=== PATIENT | male | born 1950 | race Hispanic/Latino ===

== ENCOUNTER 2019-11-19 19:14 | Emergency (ER) | payer MEDICARE, OTHER ==
[~2019-11-19] VITALS: Ht 175.3 cm; Wt 95.7 kg
--- NOTE | 2019-11-19 19:23 | Emergency Department Note ---
History of Present Illnes History of Present Illness History of Present Illness This is a 68 year old male presents to the ED for 8 days of Chest pressure with L arm pain Historian: Patient Arrival Mode: Car History limited by: language barrier Air Intelligence Officer Required: Yes Onset (how long ago): day(s) Radiation: Reports non-radiation Severity: mild Onset quality: gradual Chronicity: new Context: Denies recent illness, Denies recent surgery, Denies recent immobilization, Denies recent travel, Denies trauma/injury, Denies new medications, Denies hx of DVT/PE, Denies non-compliance w/ medications, Denies other Relieving factors: none Exacerbating factors: none Associated symptoms: Reports chest pain Past Medical/Family History Physician Review I have reviewed the patient's past medical and family history. Any updates have been documented here. Past Medical History Recent Fever: No Clinical Suspicion of Infectio: No New/Unexplained Change in Ment: No Past Medical History: Hypertension, Diabetes Other Surgery: LEFT WRIST HERNIA Social History Smoking Cessation: Never Smoker Alcohol Use: None Any Illegal Drug Use: No Other Last Tetanus: UTD Review of Systems Review of Systems Constitutional: Reports no symptoms EENTM: Reports no symptoms Cardiovascular: Reports chest pain Respiratory: Reports no symptoms Gastrointestinal: Reports no symptoms Genitourinary: Reports no symptoms Musculoskeletal: Reports no symptoms Integumentary: Reports no symptoms Neurological: Reports no symptoms Psychological: Reports no symptoms Endocrine: Reports no symptoms Hematological/Lymphatic: Reports no symptoms Physical Exam Related Data Allergies: Coded Allergies: No Known Allergies (Unverified , 07/01/14) Triage Vital Signs Vital Signs Date Time Temp Pulse Resp B/P (MAP) Pulse Ox O2 Delivery O2 Flow Rate FiO2 11/19/19 19:54 98.7 72 18 177/93 100 Room Air Vital signs reviewed: Yes Physical Exam CONSTITUTIONAL Constitutional: Present obese HENT HENT: Present normocephalic, Present atraumatic, Present oropharynx clear/moist, Present nose normal HENT L/R: Present left ext ear normal, Present right ext ear normal EYES Eyes: Reports PERRL, Reports conjunctivae normal NECK Neck: Present ROM normal PULMONARY Pulmonary: Present effort normal, Present breath sounds normal CARDIOVASCULAR Cardiovascular: Present regular rhythm, Present heart sounds normal, Present capillary refill normal, Present normal rate GASTROINTESTINAL Abdominal: Present soft, Present nontender, Present bowel sounds normal GENITOURINARY Genitourinary: Present exam deferred SKIN Skin: Present warm, Present dry MUSCULOSKELETAL Musculoskeletal: Present ROM normal NEUROLOGICAL Neurological: Present alert, Present oriented x 3, Present no gross motor or sensory deficits PSYCHOLOGICAL Psychological: Present mood/affect normal, Present judgement normal Results Laboratory Lab results reviewed: Yes Laboratory comments Laboratory Tests Test 11/19/19 20:10 White Blood Count 9.37 x10e3/uL (4.8-10.8) Red Blood Count 4.63 x10e6/uL (4.3-5.7) Hemoglobin 13.3 g/dL (14.0-18.0) Hematocrit 40.6 % (38.2-49.6) Mean Corpuscular Volume 87.7 fL (81-99) Mean Corpuscular Hemoglobin 28.7 pg (28-32) Mean Corpuscular Hemoglobin Concent 32.8 g/dL (31-35) Red Cell Distribution Width 13.4 % (11.7-14.4) Platelet Count 243 x10e3/uL (140-360) Neutrophils (%) (Auto) 70.8 % (38.7-80.0) Lymphocytes (%) (Auto) 18.4 % (18.0-39.1) Monocytes (%) (Auto) 6.3 % (4.4-11.3) Eosinophils (%) (Auto) 3.4 % (0.0-6.0) Basophils (%) (Auto) 0.5 % (0.0-1.0) Neutrophils # (Auto) 6.6 (2.1-6.9) Lymphocytes # (Auto) 1.7 (1.0-3.2) Monocytes # (Auto) 0.6 (0.2-0.8) Eosinophils # (Auto) 0.3 (0.0-0.4) Basophils # (Auto) 0.1 (0.0-0.1) Absolute Immature Granulocyte (auto 0.06 x10e3/uL (0-0.1) Sodium Level 141 mmol/L (136-145) Potassium Level 3.8 mmol/L (3.5-5.1) Chloride Level 106 mmol/L (98-107) Carbon Dioxide Level 21 mmol/L (22-29) Anion Gap 17.8 mmol/L (8-16) Blood Urea Nitrogen 20 mg/dL (7-26) Creatinine 1.43 mg/dL (0.72-1.25) Estimat Glomerular Filtration Rate 49 ML/MIN (60-) BUN/Creatinine Ratio 14 (6-25) Glucose Level 183 mg/dL (74-118) Calcium Level 8.8 mg/dL (8.4-10.2) Total Bilirubin 0.3 mg/dL (0.2-1.2) Aspartate Amino Transf (AST/SGOT) 19 IU/L (5-34) Alanine Aminotransferase (ALT/SGPT) 29 IU/L (0-55) Alkaline Phosphatase 77 IU/L (40-150) Creatine Kinase 145 IU/L (30-200) Creatine Kinase MB 1.20 ng/mL (0-5.0) Troponin I 0.002 ng/mL (0-0.300) Total Protein 6.6 g/dL (6.5-8.1) Albumin 4.2 g/dL (3.5-5.0) Globulin 2.4 g/dL (2.3-3.5) Albumin/Globulin Ratio 1.8 (0.8-2.0) Lipase 77 U/L (8-78) Ethyl Alcohol Level < 10.0 mg/dL (0.0-10.0) Imaging Imaging results reviewed: Yes Impressions [place] [id number] Patient Name: SARA SHARIF MR #: [id number] : 1950 Age/Sex: 68/M Req #: [id number] Adm Physician: Ordered by: LOW BERGER DO Report #: [id number] Location: ER Room/Bed: Procedure: [id number] DX/CHEST 2 VIEWS Exam Date: Exam Time: REPORT STATUS: Signed EXAMINATION: CHEST 2 VIEWS INDICATION: CP COMPARISON: None FINDINGS: PA and lateral views TUBES and LINES: None. . LUNGS/PLEURA: There is elevated left hemidiaphragm. There is mild prominence of the central pulmonary vasculature, consistent with pulmonary venous congestion.. There is no pleural effusion or pneumothorax. HEART AND MEDIASTINUM: Cardiac size is mildly enlarged. BONES AND SOFT TISSUES: No acute osseous lesion. Soft tissues are unremarkable. UPPER ABDOMEN: No free air under the diaphragm. IMPRESSION: Mild prominence of the central pulmonary vasculature, consistent with pulmonary venous congestion. Signed by: Leobardo Means MD on 11/19/2019 9:05 PM Dictated By: LEOBARDO MEANS MD 04 Transcribed By: KATIE on 11/19/192104 COPY TO: LOW BERGER DO~ Procedures 12 Lead ECG Interpretation ECG Interpretation : ECG: ECG 1 Air Intelligence Officer: Interpreted by ED physician Date: Nov 19, 2019 Time: 20:11 Prior ECG tracings: reviewed Rhythm: sinus rhythm Rate: normal BPM: 68 QRS axis: normal ST segments normal: Yes T waves normal: Yes Clinical Impression: normal ECG Assessment & Plan Medical Decision Making MDM Diff Dx : ACS, hypertensive urgency Assessment & Plan Final Impression: (1) Abnormal renal function (2) Hypertension (3) Chest pain, atypical Depart Disposition: HOME, SELF-CARE LOW BERGER DO Nov 19, 2019 19:23
[2019-11-19] MEDS ORDERED: ONDANSETRON HCL INJ 2MG/ML 2ML 2 MG/ML VIAL IV STA (19:30)
[2019-11-19] MEDS ORDERED: MORPHINE SULFATE INJ 4 MG/ML INJ 1ML IV PRN (19:30)
[2019-11-19 20:32] LABS: BASOPHILS # (AUTO) 0.1 (0.0-0.1); BASOPHILS % 0.5 % (0.0-1.0); EOSINOPHILS # (AUTO) 0.3 (0.0-0.4); EOSINOPHILS % 3.4 % (0.0-6.0); HEMATOCRIT 40.6 % (38.2-49.6); HEMOGLOBIN 13.3 g/dL (14.0-18.0); LYMPHOCYTES # (AUTO) 1.7 (1.0-3.2); LYMPHOCYTES % 18.4 % (18.0-39.1); MEAN CORPUSCULAR HEMOGLOBIN 28.7 pg (28-32); MEAN CORPUSCULAR HGB CONC 32.8 g/dL (31-35); MEAN CORPUSCULAR VOLUME 87.7 fL (81-99); MONOCYTES # (AUTO) 0.6 (0.2-0.8); MONOCYTES % 6.3 % (4.4-11.3); NEUTROPHILS # (AUTO) 6.6 (2.1-6.9); NEUTROPHILS % 70.8 % (38.7-80.0); PLATELET COUNT 243 x10e3/uL (140-360); RED BLOOD COUNT 4.63 x10e6/uL (4.3-5.7); RED CELL DISTRIBUTION WIDTH 13.4 % (11.7-14.4)
[2019-11-19] MEDS ORDERED: HYDRALAZINE HCL 20 MG/ML VIAL IV STA (20:42)
[2019-11-19 20:50] LABS: ALBUMIN 4.2 g/dL (3.5-5.0); ALBUMIN/GLOBULIN RATIO 1.8 (0.8-2.0); ANION GAP 17.8 mmol/L (8-16); CALCIUM 8.8 mg/dL (8.4-10.2); CREATININE, SERUM 1.43 mg/dL (0.72-1.25); POTASSIUM 3.8 mmol/L (3.5-5.1)
[2019-11-19 20:52] LABS: LIPASE 77 U/L (8-78)
[2019-11-19 20:56] LABS: CREATINE KINASE MB 1.2 ng/mL (0-5.0)
--- OUTSIDE RECORDS SUMMARY | 2019-11-19 20:58 | XMS REPORT | Continuity of Care Document ---
Author Author [facility] Organization [facility] Address [address] [place] [address] Phone Unavailable Care Team Providers Care Director Of Estate Name Role Phone Unavailable Unavailable Payers Payer Name Policy Type Policy Number Effective Date Expiration Date S ource Problems This patient has no known problems. Allergies, Adverse Reactions, Alerts Allergy Name Allergy Type Status Severity Reaction(s) Onset Date Inacti ve Date Treating Clinician Comments Source No Known Allergies DA Active U 2019-03-25 00:00:00 [facility] No Known Allergies DA Active U 2012-04-21 00:00:00 [facility] Medications This patient has no known medications. Procedures This patient has no known procedures. Results Test Description Test Time Test Comments Results Result Comments Source SURGICAL SPECIMENS 2019-04-22 11:22:00 RUN DATE: 04/22/19 [facility] *LIVE* PAGE 1 RUN TIME: 1121 Specimen Inquiry RUN USER: INTERFACE PATIENT: SARA SHARIF LOC: [facility] U #: [id number] AGE/SX: 68/M ROOM: [facility] RE03/25/19REG DR: Rosaura Saucedo : 54 BED: 1 DIS: 03/27/19 STATUS: DIS IN TLOC: SPEC #: [id number] RECD: 03/26/19 STATUS: PRASHANT RE #: [id number] MARIA E: 03/26/[address] [facility] [address]: Rosaura Saucedo MD ENTERED: 04/22/19 SP TYPE: SURG SPEC OTHR DR: Eliza Arita MD ORDERED: GM LEVEL 4 CODES: [id number] - COLON, NOS COPIES TO: Eliza Arita MD [address] [place] [address] Rosaura Saucedo MD [address] [place] [address] [address] [place] [address] [email or web address] PROCEDURES: GM LEVEL 4 (Incomplete) TISSUES: 1. COLON, NOS - Colon, left, and proximal sigmoid, prox. 2. COLON, NOS - Colon, distal ring, excision FINAL DIAGNOSIS Colon, left, and proximal sigmoid, anastamotic rings, exc: Prior polypectomy sites x 2 with hyperplastic changes, no residual malignancy or dysplasia identified; margins appear viable, 11 lymph nodes without evidence of metastatic carcinoma. Additional nodes to be reported in an addendum. GROSS AND MICROSCOPIC GROSS EXAMINATION: Received in formalin labeled left colon and sigmoid colon is a previously opened 36 cm in length 4.1 cm in circumference excision of colon. There is a suture adjacent to a 0.9 cm polypoid lesion that is 3.7 cm to the stapled distal margin, greater than 10 cm from the proximal margin and 5.5 cm from the radial margin. There is a second 1.2 cm polypoid mass with a suture that is 11 cm from the distal margin greater than 10 cm from the proximal margin and 4.3 cm from the radial margin. No other mass lesions are identified. Tissue is submitted (A)-(C) margins (D)-(F) distal polypoid lesion with suture (G)-(I) more proximal polypoid lesion with suture. Also in the container is a 2.2 cm in diameter 1 cm in length donut of mucosa subm itted (J). Random colon segments submitted CONTINUED ON NEXT PAGE RUN DATE: 04/22/19 [facility] *LIVE* PAGE 2 RUN TIME: 1122 Specimen Inquiry RUN USER: INTERFACE SPEC #: [id number] PATIENT: SARA SHARIF #[id number] (Continued) GROSS AND MICROSCOPIC (Continued) (K)- (L). Probable lymph nodes submitted (M)-(Q). Received labeled distal anastomotic ring in formalin is a 1.8 cm in diameter 1 cm in length donut of mucosa (R). MICROSCOPIC EXAMINATION: Sections of the distal polypectomy site reveal changes of hyperplastic polyp. There is some fibrosis and mild chronic inflammation. No residual malignancy is identified in this area. Sections of the more pro ximal polypectomy site also shows changes of hyperplastic polyp, there is some hemorrhage in the lamina propria with fibrosis. No residual dysplasia is identified in this area. The margins including the proximal and distal anastomotic rings are unremarkable and appear viable. The random colon sections also show some hyperplastic changes. 11 lymph nodes are identified in the surrounding adipose without evidence of metastatic carcinoma. POST-OP DIAGNOSIS Malignant neoplasm of desending colon, left colon and sigmoid colon PRE-OP DIAGNOSIS Malignant neoplasm of desending colon REVIEWED BY: LUISANA Signed SIGNATURE ON FILE HemantanaAlex DO 04/22/19 1122 END OF REPORT SURGICAL SPECIMENS 2019-04-22 11:22:00 RUN DATE: 04/23/19 [facility] *LIVE* PAGE 1 RUN TIME: 1551 Specimen Inquiry RUN USER: INTERFACE PATIENT: SARA SHARIF LOC: [facility] U #: [id number] AGE/SX: 68/M ROOM: [facility] RE03/25/19REG DR: Rosaura Saucedo : 54 BED: 1 DIS: 03/27/19 STATUS: DIS IN TLOC: SPEC #: [id number] RECD: 03/26/19 STATUS: PRASHANT FARRIS #: [id number] MARIA E: 03/26/[address] [facility] [address]: Rosaura Saucedo MD ENTERED: 04/22/19 SP TYPE: SURG SPEC OTHR DR: Eliza Arita MD ORDERED: GM LEVEL 4 CODES: [id number] - COLON, NOS COPIES TO: Eliza Arita MD [address] [place] [address] Rosaura Saucedo MD [address] [place] [address] [address] [place] [address] [email or web address] PROCEDURES: GM LEVEL 4 (Incomplete) TISSUES: 1. COLON, NOS - Colon, left, and proximal sigmoid, prox. 2. COLON, NOS - Colon, distal ring, excision ADDENDUM FINDINGS Addendum #1 Entered: 04/22/19-1236 9 additional benign lymph nodes are identified in the surrounding adipose after l ymph node clearing, 20 total lymph nodes are identified within the tissue without evidence of metastasis. Addendum Signed SIGNATURE ON FILE Alex Esposito Bert LUNA 04/23/19 1551 FINAL DIAGNOSIS Colon, left, and proximal sigmoid, anastamotic rings, exc: Prior polypectomy sites x 2 with hyperplastic changes, no residual malignancy or dysplasia identified; margins appear viable, 11 lymph nodes without evidence of metastatic carcinoma. Additional nodes to be reported in an addendum. CONTINUED ON NEXT PAGE RUN DATE: 04/23/19 [facility] *LIVE* PAGE 2 RUN TIME: 1551 Specimen Inquiry RUN USER: INTERFACE SPEC #: [id number] PATIENT: SARA SHARIF #[id number] (Continued) GROSS AND MICROSCOPIC GROSS EXAMINATION: Received in formalin labeled left colon and sigmoid colon is a previously opened 36 cm in length 4.1 cm in circumference excision of colon. There is a suture adjacent to a 0.9 cm polypoid lesion that is 3.7 cm to the stapled distal margin, greater than 10 cm from the proximal margin and 5.5 cm from the radial margin. There is a second 1.2 cm polypoid mass with a suture that is 11 cm from the distal margin greater than 10 cm from the proximal margin and 4.3 cm from the radial margin. No other mass lesions are identified. Tissue is submitted (A)-(C) margins (D)-(F) distal polypoid lesion with suture (G)-(I) more proximal polypoid lesion with suture. Also in the container is a 2.2 cm in diameter 1 cm in length donut of mucosa submitted (J). Random colon segments submitted (K)-(L). Probable lymph nodes submitted (M)-(Q). Received labeled distal anastomotic ring in formalin is a 1.8 cm in diameter 1 cm in length donut of mucosa (R). MICROSCOPIC EXAMINATION: Sections of the distal polypectomy site reveal changes of hyperplastic polyp. There is some fibrosis and mild chronic inflammation. No residual malignancy is identified in this area. Sections of the more proximal polypectomy site also shows changes of hyperplastic polyp, there is some hemorrhage in the lamina propria with fibrosis. No residual dysplasia is identified in this area. The margins including the proximal and distal anastomotic rings are unremarkable and appear viable. The random colon sections also show some hyperplastic changes. 11 lymph nodes are identified in the surrounding adipose without evidence of metastatic carcinoma. POST-OP DIAGNOSIS Malignant neoplasm of desending colon, left colon and sig moid colon PRE-OP DIAGNOSIS Malignant neoplasm of desending colon REVIEWED BY: LUISANA Signed SIGNATURE ON Alex Jordan 04/22/19 1122 END OF REPORT GLUBED 2019-03-27 16:33:00 Test Item GLUBED (test code = GLUBED) 93 MG/DL 70-110 N Performed by certified mva reactor operator at [facility] [id number] 12:28:00* Test Item Value Reference Range Interpretation Comments GLUBED (test code = GLUBED) 121 MG/DL 70-110 H Performed by certified mva reactor operator at [facility] [id number] 08:27:00* Test Item Value Reference Range Interpretation Comments GLUBED (test code = GLUBED) 89 MG/DL 70-110 N Performed by certified mva reactor operator at [facility] [id number] 20:43:00* Test Item Value Reference Range Interpretation Comments GLUBED (test code = GLUBED) 160 MG/DL 70-110 H Performed by certified mva reactor operator at [facility] [id number] 17:38:00* Test Item Value Reference Range Interpretation Comments GLUBED (test code = GLUBED) 90 MG/DL 70-110 N Performed by certified mva reactor operator at [facility] BASIC METABOLIC [id number] 10:38:00* Test Item Value Reference Range Interpretation Comments SODIUM (test code = NA) 137 mEq/L 134-147 N POTASSIUM (test code = K) 3.9 mEq/L 3.4-5.0 N CHLORIDE (test code = CL) 105 mEq/L 100-108 N CARBON DIOXIDE (test code = CO2) 24 mEq/L 21-33 N ANION GAP (test code = GAP) 12 0-20 N GLUCOSE (test code = GLU) 158 mg/dL 70-110 H BLOOD UREA NITROGEN (test code = BUN) 16 mg/dL 7-18 N GLOMERULAR FILTRATION RATE (test code = GFR) 50.7 80-90 L Units of measure = ml/min/1.73 m2 CREATININE (test code = CREAT) 1.4 mg/dL 0.6-1.3 H CALCIUM (test code = CA) 8.4 mg/dL 8.0-10.5 N [id number] 10:38:00* Test Item Value Reference Range Interpretation Comments PHOSPHOROUS (test code = PHOS) 3.0 MG/DL 2.5-4.9 N [id number] 10:38:00* Test Item Value Reference Range Interpretation Comments MAGNESIUM (test code = MAG) 2.00 mg/dL 1.8-2.4 N CALCIUM [id number] 10:38:00* Test Item Value Reference Range Interpretation Comments CALCIUM IONIZED (test code = MELISSA) 1.14 MMOL/L 1.12-1.32 N BASIC METABOLIC [id number] 05:13:00* Test Item Value Reference Range Interpretation Comments SODIUM (test code = NA) 137 mEq/L 134-147 N POTASSIUM (test code = K) 3.9 mEq/L 3.4-5.0 N CHLORIDE (test code = CL) 105 mEq/L 100-108 N CARBON DIOXIDE (test code = CO2) 24 mEq/L 21-33 N ANION GAP (test code = GAP) 12 0-20 N GLUCOSE (test code = GLU) 158 mg/dL 70-110 H BLOOD UREA NITROGEN (test code = BUN) 16 mg/dL 7-18 N GLOMERULAR FILTRATION RATE (test code = GFR) 50.7 80-90 L Units of measure = ml/min/1.73 m2 CREATININE (test code = CREAT) 1.4 mg/dL 0.6-1.3 H CALCIUM (test code = CA) 8.4 mg/dL 8.0-10.5 N [id number] 05:13:00* Test Item Value Reference Range Interpretation Comments PHOSPHOROUS (test code = PHOS) 3.0 MG/DL 2.5-4.9 N [id number] 05:13:00* Test Item Value Reference Range Interpretation Comments MAGNESIUM (test code = MAG) 2.00 mg/dL 1.8-2.4 N CALCIUM [id number] 05:13:00* Test Item Value Reference Range Interpretation Comments CALCIUM IONIZED (test code = MELISSA) MMOL/L 1.12-1.32 HGB [id number] 04:46:00* Test Item Value Reference Range Interpretation Comments HEMOGLOBIN (test code = HGB) 11.9 g/dL 12.5-16.9 L HEMATOCRIT (test code = HCT) 35.5 % 37.5-50.7 L BASIC METABOLIC [id number] 07:27:00* Test Item Value Reference Range Interpretation Comments SODIUM (test code = NA) 135 mEq/L 134-147 N POTASSIUM (test code = K) 3.6 mEq/L 3.4-5.0 N CHLORIDE (test code = CL) 100 mEq/L 100-108 N CARBON DIOXIDE (test code = CO2) 30 mEq/L 21-33 N ANION GAP (test code = GAP) 9 0-20 N GLUCOSE (test code = GLU) 272 mg/dL 70-110 H BLOOD UREA NITROGEN (test code = BUN) 17 mg/dL 7-18 N GLOMERULAR FILTRATION RATE (test code = GFR) 50.7 80-90 L Units of measure = ml/min/1.73 m2 CREATININE (test code = CREAT) 1.4 mg/dL 0.6-1.3 H CALCIUM (test code = CA) 8.5 mg/dL 8.0-10.5 N BASIC METABOLIC [id number] 07:25:00* Test Item Value Reference Range Interpretation Comments SODIUM (test code = NA) 135 mEq/L 134-147 N POTASSIUM (test code = K) 3.6 mEq/L 3.4-5.0 N CHLORIDE (test code = CL) 100 mEq/L 100-108 N CARBON DIOXIDE (test code = CO2) 30 mEq/L 21-33 N ANION GAP (test code = GAP) 9 0-20 N GLUCOSE (test code = GLU) 272 mg/dL 70-110 H BLOOD UREA NITROGEN (test code = BUN) 17 mg/dL 7-18 N GLOMERULAR FILTRATION RATE (test code = GFR) 80-90 CREATININE (test code = CREAT) mg/dL 0.6-1.3 CALCIUM (test code = CA) 8.5 mg/dL 8.0-10.5 N BASIC METABOLIC [id number] 16:50:00* Test Item Value Reference Range Interpretation Comments SODIUM (test code = NA) 139 mEq/L 134-147 N POTASSIUM (test code = K) 3.7 mEq/L 3.4-5.0 N CHLORIDE (test code = CL) 108 mEq/L 100-108 N CARBON DIOXIDE (test code = CO2) 26 mEq/L 21-33 N ANION GAP (test code = GAP) 9 0-20 N GLUCOSE (test code = GLU) 132 mg/dL 70-110 H BLOOD UREA NITROGEN (test code = BUN) 23 mg/dL 7-18 H GLOMERULAR FILTRATION RATE (test code = GFR) 50.7 80-90 L Units of measure = ml/min/1.73 m2 CREATININE (test code = CREAT) 1.4 mg/dL 0.6-1.3 H CALCIUM (test code = CA) 9.5 mg/dL 8.0-10.5 N AG [id number] 16:50:00* Test Item Value Reference Range Interpretation Comments AG CARCINOEMBRYONIC (test code = CEA) 2.0 NG/ML 0.0-5.0 N PROTHROMBIN [id number] 16:48:00* Test Item Value Reference Range Interpretation Comments PROTHROMBIN TIME PATIENT (test code = PTP) 12.1 SECONDS 9.3-12.9 N INTERNATIONAL NORMAL RATIO (test code = INR) 1.1 0.8-1.2 N TARGET INR BY INDICATION Indication INR1. Prophylaxis of venous thrombosis 2.0 - 3.0 (orthopedic surgery), Prophylaxis of venous thrombosis (other than high-risk surgery), Treatment of Deep Vein Thrombosis/Pulmonary Embolism, Prevention of systemic embolism - Tissue heart valves, Acute Myocardial Infarction (to prevent systemic embolism), Valvular heart disease, Atrial Fibrillation, Bileaflet mechanical valve in aortic position.2. Mechanical prosthetic valves (high risk), 2.5 - 3.5 Presence of Lupus Anticoagulant or Antiphospholipid Antibodies, Prevention of systemic embolism - Acute Myocardial Infarction (to prevent recurrent infarct). THROMBOPLASTIN TIME [id number] 16:48:00* Test Item Value Reference Range Interpretation Comments THROMBOPLASTIN TIME PARTIAL (test code = PTT) 36.0 Seconds 25.0-39. 5 N Therapeutic Range: 50.4 - 88.3 Seconds Effective 06/30/2018 - XR CHEST 2 [id number] 16:40:00 FAX: Eliza Timmons [phone] [place]: St: PRE FAX: Meseret Sevilla [phone] Name: SARA SHARIF [facility] : 1950 Age/S: 68/M [address] [place] [address] Unit #: [id number] Loc: [place] [address] Phys: Rosaura Saucedo MD Acct: [id number] Dis Date: Status: PRE IN PHONE #: [phone] Exam Date: 03/22/2019 1635 FAX #: [phone] Reason: PREOP FOR LEFT COLECTOMY EXAMS: CPT CODE: [id number] XR CHEST 2 V 38625 EXAM: XR CHEST 2 VIEWS DATE: 03/22/2019 3:51 PM : 1950; Age: 68 years y/o Male INDICATION: Sigmoid colon cancer PREOP FOR LEFT COLECTOMY COMPARISON: None. TECHNIQUE: PA and lateral chest radiographs. FINDINGS: Lines, tubes and hardware: None. Lungs and pleura: The lungs are clear. No pleural effusion. Heart and mediastinum: The heart size is normal for technique. The mediastinal contours are normal. Pulmonary vascularity is normal. IMPRESSION: No acute cardiopulmonary process. SL: [id number] at 1640 Reported and signed by: Candy Romero D.O. CC: Eliza Arita MD; Rosaura magdaleno MD Technologist: RT Barbara(R) Trnscrd Date/Time/By: 03/22/2019 (1640) : By: [email or web address] Orig Print D/T: S: 03/22/2019 (9455) PAGE 1 Signed Report BASIC METABOLIC [id number] 16:31:00* Test Item Value Reference Range Interpretation Comments SODIUM (test code = NA) 139 mEq/L 134-147 N POTASSIUM (test code = K) 3.7 mEq/L 3.4-5.0 N CHLORIDE (test code = CL) 108 mEq/L 100-108 N CARBON DIOXIDE (test code = CO2) 26 mEq/L 21-33 N ANION GAP (test code = GAP) 9 0-20 N GLUCOSE (test code = GLU) 132 mg/dL 70-110 H BLOOD UREA NITROGEN (test code = BUN) 23 mg/dL 7-18 H GLOMERULAR FILTRATION RATE (test code = GFR) 50.7 80-90 L Units of measure = ml/min/1.73 m2 CREATININE (test code = CREAT) 1.4 mg/dL 0.6-1.3 H CALCIUM (test code = CA) 9.5 mg/dL 8.0-10.5 N AG [id number] 16:31:00* Test Item Value Reference Range Interpretation Comments AG CARCINOEMBRYONIC (test code = CEA) NG/ML 0.0-5.0 BASIC METABOLIC [id number] 16:28:00* Test Item Value Reference Range Interpretation Comments SODIUM (test code = NA) 139 mEq/L 134-147 N POTASSIUM (test code = K) 3.7 mEq/L 3.4-5.0 N CHLORIDE (test code = CL) 108 mEq/L 100-108 N CARBON DIOXIDE (test code = CO2) 26 mEq/L 21-33 N ANION GAP (test code = GAP) 9 0-20 N GLUCOSE (test code = GLU) 132 mg/dL 70-110 H BLOOD UREA NITROGEN (test code = BUN) 23 mg/dL 7-18 H GLOMERULAR FILTRATION RATE (test code = GFR) 80-90 CREATININE (test code = CREAT) mg/dL 0.6-1.3 CALCIUM (test code = CA) 9.5 mg/dL 8.0-10.5 N AG [id number] 16:28:00* Test Item Value Reference Range Interpretation Comments AG CARCINOEMBRYONIC (test code = CEA) NG/ML 0.0-5.0 CBC W/AUTO [id number] 16:21:00* Test Item Value Reference Range Interpretation Comments WHITE BLOOD CELL (test code = WBC) 8.63 x10 3/uL 4.5-11.0 N RED BLOOD CELL (test code = RBC) 4.77 x10 6/uL 4.00-5.60 N HEMOGLOBIN (test code = HGB) 13.7 g/dL 12.5-16.9 N HEMATOCRIT (test code = HCT) 42.3 % 37.5-50.7 N MEAN CELL VOLUME (test code = MCV) 88.7 fL 81.0-99.0 N MEAN CELL HGB (test code = MCH) 28.7 pg 27.0-33.0 N MEAN CELL HGB CONCETRATION (test code = MCHC) 32.4 g/dL 33.0-37. 0 L RED CELL DISTRIBUTION WIDTH CV (test code = RDW) 13.2 % 11.5- 14.5 N RED CELL DISTRIBUTION WIDTH SD (test code = RDW-SD) 42.9 fL 37 .0-54.0 N PLATELET COUNT (test code = PLT) 255 x10 3/uL 150-400 N MEAN PLATELET VOLUME (test code = MPV) 10.8 fL 7.0-9.0 H NEUTROPHIL % (test code = NT%) 65.9 % 56.0-77.0 N IMMATURE GRANULOCYTE % (test code = IG%) 0.5 % 0.0-2.0 N LYMPHOCYTE % (test code = LY%) 22.0 % 14.0-32.0 N MONOCYTE % (test code = MO%) 7.1 % 4.8-9.0 N EOSINOPHIL % (test code = EO%) 3.8 % 0.3-3.7 H BASOPHIL % (test code = BA%) 0.7 % 0.0-2.0 N NUCLEATED RBC % (test code = NRBC%) 0.0 % 0-0 N NEUTROPHIL # (test code = NT#) 5.69 x10 3/uL 2.0-7.6 N IMMATURE GRANULOCYTE # (test code = IG#) 0.04 x10 3/uL 0.00-0.03 H LYMPHOCYTE # (test code = LY#) 1.90 x10 3/uL 1.0-3.8 N MONOCYTE # (test code = MO#) 0.61 x10 3/uL 0.1-0.8 N EOSINOPHIL # (test code = EO#) 0.33 x10 3/uL 0.0-0.2 H BASOPHIL # (test code = BA#) 0.06 x10 3/uL 0.0-0.2 N NUCLEATED RBC # (test code = NRBC#) 0.00 x10 3/uL 0.0-0.1 N MANUAL DIFF REQUIRED (test code = MDIFF) NO CREATININE W ESTIMATED [id number] 15:17:00* Test Item Value Reference Range Interpretation Comments BEDSIDE CREATININE (test code = CREATBED) 1.4 MG/DL 0.6-1.3 H GLOMERULAR FILTRATION RATE POC (test code = GFRBED) 54 ML/MIN ENTER BEDSIDE CREATININE RESULT: 1.38Serial Number: [id number] Name of User Perfo rming Test: DINA- CT CHEST [id number] 13:11:00 Name: SARA SHARIF [facility] : 1950 Age/S: 68 / M [address] [place] [address] Unit #: [id number] Loc: [place] [address] Phys: Rosaura Saucedo MD Acct: [id number] Dis Date: Status: REG CLI PHONE #: [phone] Exam Date: 03/15/2019 1016 FAX #: [phone] Reason: C18.6, LEFT COLON CANCER. EXAMS: CPT CODE: [id number] CT CHEST W/CONTRAST [address] PROCEDURE: CT CHEST, ABDOMEN AND PELVIS WITH CONTRAST INDICATION: Malignant neoplasm of the descending colon. COMPARISON: No relevant priors available. TECHNIQUE: Helical imaging was performed apices through the symphysis with multiplanar reconstructions. CT imaging performed at this location utilizes radiation dose optimization techniques which include one or more of the following: -Automated exposure control -Adjustment of the mA and/or kV according to patient size -Use of iterative reconstruction te chnique CT Radiation Dose DLP 846.96 mGy-cm IV CONTRAST: 10 0 mL Isovue-300. GI CONTRAST: None. FINDINGS: CHEST: LUNGS: The lungs are clear. No pleural abnormality. MEDIAST INUM: The mediastinal contents are normal. Normal aorta. No adenopathy. MUSCULOSKELETAL: The skeleton is intact. ABDOMEN: SOLID ORGANS: Mildly diminished attenuation throughout the hepatic paren chyma. No focal liver lesions. The gallbladder, spleen, adrenals, kidneys and pancreas appear normal. BOWEL: The large and small bowel appea r normal. A normal appendix is identified. No definite colonic mass identi fied. PERITONEUM: No free intraperitoneal fluid or air. Mesenteric vessels enhance normally. RETROPERITONEUM: No adenopathy. T he aorta is normal. PELVIS: Prostate is enlarged. Urinary bladder appears normal. No pelvic mass or fluid collection. MUSCULOS KELETAL: The skeleton is intact. PAGE 1 Arlene d Report (CONTINUED) Name: SARA SHARIF [facility] : 1950 Age/S: 68 / M [address] [place] [address] Unit #: [id number] Loc: [place] [address] Phys: Rosaura Saucedo MD Acct: [id number] Dis Date: Status: REG CLI PHONE #: [phone] Exam Date: 03/15/2019 FAX #: [phone] Reason: C18.6, LEFT COLON CANCE R. EXAMS: CPT CODE: [id number] CT CHEST W/CONTRAST 09646 <Continued> IMPRESSION: 1. Hepatic steatosis. 2. Enlarged prostate. 3. Otherwise normal exam. END IMPRESSION [id number] at 1311 Reported and signed by: Rush Negron M.D. CC: Eliza Arita MD; Rosaura Saucedo MD Technologist:RICHA Oseguera CTDI: DLP: Trnscb Date/Time: 03/15/2019 (1311) Heidi.RTB Orig Print D/T: S: 03/15/2019 (9485) PAGE 2 Signed Report - CT ABD PELVIS [id number] 13:11:00 Name: SARA SHARIF [facility] : 1950 Age/S: 68 / M [address] [place] [address] Unit #: [id number] Loc: [place] [address] Phys: Rosaura Saucedo MD Acct: [id number] Dis Date: Status: REG CLI PHONE #: [phone] Exam Date: 03/15/2019 1016 FAX #: [phone] Reason: C18.6,LEFT COLON CANCER. EXAMS: CPT CODE: [id number] CT ABD PELVIS W/CONT 92469 PROCEDURE: CT CHEST, ABDOMEN AND PELVIS WITH CONTRAST INDICATION: Malignant neoplasm of the descending colon. COMPARISON: No relevant priors available. TECHNIQUE: Helical imaging was performed apices through the symphysis with multiplanar reconstructions. CT imaging performed at this location utilizes radiation dose optimization techniques which include one or more of the following: - Automated exposure control -Adjustment of the mA and/or kV according to patient size -Use of iterative reconstruction technique CT Radiation Dose DLP 846.96 mGy-cm IV CONTRAST: 100 mL Isovue-300. GI CONTRAST: None. FINDINGS: CHEST: LUNGS: The lungs are clear. No pleural abnormality. MEDIASTINUM: The mediastinal contents are normal. Normal aorta. No adenopathy. MUSCULOSKELETAL: The skeleton is intact. ABDOMEN: SOLID ORGANS: Mildly diminished attenuation throughout the hepatic parenchyma. No focal liver lesions. The gallbladder, spleen, adrenals, kidneys and pancreas appear normal. BOWEL: The large and small bowel appear normal. A normal appendix is identified. No definite colonic mass identi fied. PERITONEUM: No free intraperitoneal fluid or air. Mesenteric vessels enhance normally. RETROPERITONEUM: No adenopathy. T he aorta is normal. PELVIS: Prostate is enlarged. Urinary bladder appears normal. No pelvic mass or fluid collection. MUSCULOS KELETAL: The skeleton is intact. PAGE 1 Arlene d Report (CONTINUED) Name: SARA SHARIF [facility] : 1950 Age/S: 68 / M [address] [place] [address] Unit #: [id number] Loc: [place] [address] Phys: Rosaura Saucedo MD Acct: [id number] Dis Date: Status: REG CLI PHONE #: [phone] Exam Date: 03/15/2019 1 016 FAX #: [phone] Reason: C18.6,LEFT COLON CANCER . EXAMS: CPT CODE: [id number] CT ABD PELVIS W/CONT 62154 <Continued> IMPRESSION: 1. Hepatic steatosis. 2. Enlarged prostate. 3. Otherwise normal exam. END IMPRESSION [id number] at 1311 Reported and signed by: Rush Negron M.D. CC: Eliza Arita MD; Rosaura Saucedo MD Technologist:RICHA Oseguera CTDI: DLP: Trnscb Date/Time: 03/15/2019 (793) Heidi.RTB Orig Print D/T: S: 03/15/2019 (1945) PAGE 2 Signed Report PERINEUM 2017-12-08 12:29:00 RUN DATE: 12/08/17 [facility] PAGE 1 RUN TIME: 1229 Specimen Inqui ry RUN USER: INTERFACE PATIENT: SARA SHARIF ACCT #: [id number] LOC: [facility] U #: [id number] AGE/SX: 66/M ROOM: RE12/05/17REG DR: Alex Mcgraw MD : [birth year] BED: DIS: STATUS: [facility]: SPEC #: [id number] RECD: 12/05/17 STATUS: PRASHANT FARRIS #: [id number] MARIA E: 12/05/17 DR: Alex Mcgraw MD ENTERED: 12/05/17 SP TYPE: PER DIANA DR: ORDERED: GROSS PROCEDURES: GROSS (12/08/17-1114) TISSUES: PERITONEUM, NOS - CHRONIC ABCESS CLINICAL HISTORY COLLECTION DATE: 12/05/17 CHRONIC PERINEAL ABSCESS FINAL DIAGNOSIS Perineal abscess, excision: SKIN AND UNDERLYING TISSUE WITH EXTENSIVE ABSCESS F ORMATION, GRANULATION TISSUE, AND GIANT CELL REACTION NEGATIVE F OR MALIGNANCY LIV/rachel D [id number] MACROSCOPIC The specimen is received in formalin, labeled with the patient's name and identified as "chron ic perineal abscess". It consists of a portion of skin and subcutaneous adipo se tissue with a softened red area containing friable material. The skin joss pse is darkly pigmented and measures 1.8 X 0.8 cm. The specimen measures up to 4.5 X 2.2 X 1.5 cm. Cut section demonstrates that the area of mendez softening extends to the skin. This area of red-mendez softening measures up to 2 cm. A s ample of the specimen is submitted for microscopic evaluation in a single nain ette. GROSS PERFORMED AT [facility] [address] [facility], [place] [address] (p)[phone] CONTINUED ON NEXT PAGE RUN DATE: 12/08/17 [place] [facility] PAGE 2 RUN TIME: 1229 Specimen Inquiry RUN USER: INTERFACE SPEC #: [id number] PATIENT: SARA SHARIF #[id number] ([facility] ued) MICROSCOPIC MICROSCOPIC PERFORMED AT [facility] All of the stains, including any controls performed, stain doreeni itzel. [facility] [address] [facility] [place] [address] ( P)[phone] PERFORMING SITE Diagnosis performed at: [facility], [place] [address] [place], [place] [address] Signed SIGNATURE ON Namrata Brock 12/08/17 1229 END OF REPORT
--- NOTE | 2019-11-19 21:09 | Diagnostic Imaging Report ---
EXAMINATION: CHEST 2 VIEWS INDICATION: CP COMPARISON: None FINDINGS: PA and lateral views TUBES and LINES: None. . LUNGS/PLEURA: There is elevated left hemidiaphragm. There is mild prominence of the central pulmonary vasculature, consistent with pulmonary venous congestion.. There is no pleural effusion or pneumothorax. HEART AND MEDIASTINUM: Cardiac size is mildly enlarged. BONES AND SOFT TISSUES: No acute osseous lesion. Soft tissues are unremarkable. UPPER ABDOMEN: No free air under the diaphragm. IMPRESSION: Mild prominence of the central pulmonary vasculature, consistent with pulmonary venous congestion. Signed by: Leobardo Calixto MD on 11/19/2019 9:05 PM
[2019-11-19 21:21] VITALS: BP 151/95
== END 2019-11-19 21:23 | disposition home or self-care (01) ==
LOC: ER 19:59
DX: R07.89 Other chest pain (principal); R94.4 Abnormal results of kidney function studies; E11.65 Type 2 diabetes mellitus with hyperglycemia; I10 Essential (primary) hypertension
CPT/HCPCS: 36415; 71046; 80053; 80320; 82550; 82553; 83690; 84484; 85025; 93005; 99283